=== PATIENT | male | born 1985 | race Two or more races ===

== ENCOUNTER 2019-12-09 22:49 | Emergency (ER) | payer OTHER ==
[~2019-12-09] VITALS: Ht 167.6 cm; Wt 65.8 kg
== END 2019-12-10 01:42 | disposition home or self-care (01) ==
LOC: ER 22:49
DX: S72.141A Displaced intertrochanteric fracture of right femur, initial encounter for closed fracture (principal); M97.01XA Periprosthetic fracture around internal prosthetic right hip joint, initial encounter; L89.159 Pressure ulcer of sacral region, unspecified stage; G82.20 Paraplegia, unspecified; Z88.1 Allergy status to other antibiotic agents; Z88.0 Allergy status to penicillin; W05.0XXA Fall from non-moving wheelchair, initial encounter
CPT/HCPCS: 73700; 96372; 99283-25; A9270; J3010

== ENCOUNTER 2019-12-11 23:37 | Emergency (ER) | payer OTHER ==
[~2019-12-11] VITALS: Ht 165.1 cm; Wt 56.7 kg
== END 2019-12-12 00:40 | disposition home or self-care (01) ==
LOC: ER 23:37
DX: L89.319 Pressure ulcer of right buttock, unspecified stage (principal); L89.329 Pressure ulcer of left buttock, unspecified stage; S72.141D Displaced intertrochanteric fracture of right femur, subsequent encounter for closed fracture with routine healing; I10 Essential (primary) hypertension; Z87.39 Personal history of other diseases of the musculoskeletal system and connective tissue; Z98.890 Other specified postprocedural states; Z96.698 Presence of other orthopedic joint implants; Z88.1 Allergy status to other antibiotic agents; X58.XXXD Exposure to other specified factors, subsequent encounter
CPT/HCPCS: 99283